=== PATIENT | female | born 1960 | race Caucasian/White ===

== ENCOUNTER 2017-06-30 09:39 | Emergency (ER) | payer MEDICAID ==
[2017-06-30] MEDS ORDERED: Ketorolac 60 MG/2 ML SDV IM ONE (11:11)
[2017-06-30] MEDS ORDERED: Ketorolac 60 MG/2 ML SDV ONE (11:15)
--- NOTE | 2017-06-30 15:26 | CR ---
DATE OF SERVICE: 06/30/17 CLINICAL DATA: pain x 1 day. No injury. LEFT SHOULDER: No priors. There is diffuse osteopenia. There are osteoarthritic changes involving the AC and glenohumeral joints. No acute fracture or dislocation. No lytic or blastic bone lesions. There are surgical changes involving the cervical spine. [id number] [facility]
--- NOTE | 2017-07-01 00:12 | ER ---
DATE OF SERVICE: 06/30/2017 HISTORY OF PRESENT ILLNESS: A 57-year-old lady here with complaints of left shoulder pain that started last evening. She states that she was in a store shopping yesterday afternoon when she bumped into a clothes rack. She states it was not hard. It was just a small bump, and it did not seem to bother her at first, but over the course of the next few hours the pain became worse. This morning, the pain has been severe. She is pointing to the anterior and lateral aspect of the left shoulder. She states it hurts when she tries to move it. There was a little bit of numbness at one point radiating into the upper arm, but she does not have that at this time. She denies any other injuries. She denies any previous history of a similar nature. OBJECTIVE: GENERAL APPEARANCE: The patient is awake and alert, in no obvious distress. VITAL SIGNS: Reviewed as listed. They are normal. Examining the left shoulder reveals tenderness over the anterior aspect of the glenohumeral joint radiating around to the deltoid muscle area. There is guarding with even light touch. The patient has pain with any kind of motion of the left shoulder. Hand grasp is present and equal. The patient has good sensation, color and motion of the hand and wrist area. LAB AND X-RAY: X-ray of the left shoulder was obtained. The radiologist report does show some degenerative joint disease with spurring along the glenoid rim as well as the left AC joint area. No acute fracture or dislocation. DIAGNOSES: Left shoulder pain due to arthritis combined with a minor injury. TREATMENT PLAN: The patient will be given a sling. She is to wear this for the next several days. She does have a fentanyl patch. I will give her a few Vicodin tablets to take just as needed, and she can apply ice packs to the area of pain frequently for the next couple of days. Recheck is pannmarie THOMPSON/SUZETTE /[id number] JENNY
== END 2017-06-30 11:50 | disposition home or self-care (01) ==
LOC: LB.ED 09:39
DX: M12.512 Traumatic arthropathy, left shoulder (principal); W22.8XXA Striking against or struck by other objects, initial encounter
CPT/HCPCS: 73030-LT; 96372; 99283-25

== ENCOUNTER 2019-02-26 20:22 | Emergency (ER) | payer MEDICAID ==
[2019-02-26] MEDS ORDERED: Cyclobenzaprine 10 MG Tab ONE (20:50)
[2019-02-26 21:00] VITALS: BP 112/57; PULSE 84
--- NOTE | 2019-02-27 02:37 | ER ---
HISTORY OF PRESENT ILLNESS: A 58-year-old lady here with complaints of pain involving the right shoulder. She is pointing to the superior and just proximal posterior aspect of the shoulder. She states it started after she was pulling on her Fridge on Thursday. She felt a little twinge in this area, but did not think anything of it and the next day she was quite painful. She has been using some Tylenol and ibuprofen. She also has a muscle relaxer actually 2 of them at home, but she says they are outdated. She did not try these. The patient also uses a fentanyl patch for other chronic pain. She felt that it improved and was getting better, then she did more activities and it is now painful once again. She did not have any falls or other types of injuries. OBJECTIVE: GENERAL APPEARANCE: The patient is awake and alert, no obvious distress. VITAL SIGNS: Reviewed and they are normal. EXTREMITIES: Examining the right shoulder reveals tightness and tenderness of the trapezius muscle, the full length of the muscle. Light touch is tender and it is slightly swollen compared to the left side. There is no bruising. The skin is intact. The patient has no tenderness with palpation of the shoulder joint, rotator cuff muscles, or deltoid muscle. LUNGS: Clear. SKIN: Warm and dry. DIAGNOSIS: Muscle strain of the right trapezius. TREATMENT PLAN: We will give the patient some Flexeril tablets. She can use them mainly at bedtime, but during the day as needed. They will make her drowsy. She is to continue alternating Tylenol with ibuprofen and she can apply heat alternating with ice and be switching over to just heat within the next day or so. Activity should be light duty. If she is having ongoing pain issues, she could wear sling. Followup should be in about a week if her symptoms are not resolving or as needed. CRS/MODL /[id number]
== END 2019-02-26 21:10 | disposition home or self-care (01) ==
LOC: LB.ED 20:22
DX: S46.911A Strain of unspecified muscle, fascia and tendon at shoulder and upper arm level, right arm, initial encounter (principal); X50.9XXA Other and unspecified overexertion or strenuous movements or postures, initial encounter
CPT/HCPCS: 99283; A9270-GY

== ENCOUNTER 2019-11-08 13:07 | Emergency (ER) | payer BC, MEDICAID ==
[2019-11-08] MEDS ORDERED: diphenhydrAMINE 50 MG/ML SDV IVPUSH ONE (13:33)
[2019-11-08] MEDS ORDERED: Famotidine 20 MG/2 ML SDV IVPUSH ONE (13:53)
[2019-11-08] MEDS ORDERED: methylPREDNISolone Sodium Succinate 125 MG/2 ML SDV IVPUSH ONE (13:53)
--- NOTE | 2019-11-08 14:27 | EDM.PDOC ---
ED HPI GENERAL MEDICAL PROBLEM - General Chief Complaint: Allergic Reaction Stated Complaint: BEE STING Time Seen by Provider: 11/08/19 13:45 Source of Information: Reports: Patient History Limitations: Reports: No Limitations - History of Present Illness INITIAL COMMENTS - FREE TEXT/NARRATIVE: LUE bee sting. PMH anaphylaxis. Epi pen was administered shortly after event. Onset: Today Severity: Mild Associated Symptoms: Reports: Rash Treatments BUFFING TURNER AND COUNTER: Reports: Other (see below) (EPI PEN) - Related Data Allergies Allergy/AdvReac Type Severity Reaction Status Date / Time bee venom protein (honey bee) Allergy Anaphylactic Verified 11/08/19 13:36 Shock Home Meds: Home Meds DULoxetine [Cymbalta] 60 mg PO DAILY 02/26/19 [History] FLUoxetine [PROzac] 40 mg PO DAILY 02/26/19 [History] Levothyroxine Sodium [Synthroid] 112 mcg PO ACBREAKFAST 02/26/19 [History] Omeprazole Magnesium 20 mg PO DAILY 02/26/19 [History] Oxybutynin 15 mg PO DAILY 02/26/19 [History] Spironolactone [Aldactone] 100 mg PO DAILY 02/26/19 [History] fentaNYL [Duragesic] 75 patch TRDERM ASDIRECTED 02/26/19 [History] lisinopriL [Lisinopril] 5 mg PO DAILY 02/26/19 [History] EPINEPHrine [Adrenaclick] 0.3 mg IM ASDIRECTED PRN #2 ml 11/08/19 [Rx] Past Medical History HEENT History: Reports: Impaired Vision Cardiovascular History: Reports: Hypertension Gastrointestinal History: Reports: GERD Genitourinary History: Reports: Retention, Urinary RN OTOLARYNGOLOGY History: Reports: Musculoskeletal History: Reports: Back Pain, Chronic, Neck Pain, Chronic Neurological History: Reports: Migraines Psychiatric History: Reports: Anxiety, Depression Endocrine/Metabolic History: Reports: Hypothyroidism - Past Surgical History Neurological Surgical History: Reports: C-Spine, Discectomy, Spinal Fusion Social & Family History - Family History Family Medical History: Noncontributory - Tobacco Use Smoking Status *Q: Unknown Ever Smoked Second Hand Smoke Exposure: No - Caffeine Use Caffeine Use: Reports: Coffee, Soda - Recreational Drug Use Recreational Drug Use: No ED ROS ALLERGIC REACTION - Review of Systems Review Of Systems: See Below Constitutional: Reports: No Symptoms HEENT: Reports: No Symptoms Respiratory: Reports: No Symptoms Cardiovascular: Reports: No Symptoms Endocrine: Reports: No Symptoms GI/Abdominal: Reports: No Symptoms : Reports: No Symptoms Musculoskeletal: Reports: No Symptoms Skin: Reports: Pruritis, Rash, Urticaria Neurological: Reports: No Symptoms Psychiatric: Reports: No Symptoms Hematologic/Lymphatic: Reports: No Symptoms Immunologic: Reports: Anaphylaxis, Environmental Allergy ED EXAM GENERAL NO PERIP PULSE - Physical Exam Exam: See Below Text/Narrative:: On exam, no facial, tongue, lip, or neck swelling. Diffuse hives anterior and posterior trunk, bilateral UE, and groin area. Patient denies SOB, CP, N/V/D. Was administered her EPI pen BUFFING TURNER AND COUNTER. We will observe patient in ED for 2 hours and DC. EPI pen RX called to Noelle Falcon pharmacist. Patient will be instructed to take 1 zyrtec daily at bedtime x 4 days, and 50mg benadryl every 6 hours for 3 days for itching and hives. Exam Limited By: No Limitations General Appearance: Alert, No Apparent Distress Ears: Normal External Exam Nose: Normal Inspection Throat/Mouth: Normal Inspection, Normal Lips, Normal Oropharynx, Normal Voice, No Airway Compromise Head: Atraumatic Neck: Normal Inspection, Non-Tender, Full Range of Motion Respiratory/Chest: No Respiratory Distress, Lungs Clear, Normal Breath Sounds, No Accessory Muscle Use, Chest Non-Tender. No: Respiratory Distress, Wheezing, Stridor Cardiovascular: Normal Peripheral Pulses, Regular Rate, Rhythm, No Murmur, Tachycardia GI/Abdominal: Normal Bowel Sounds, Soft, Non-Tender Back Exam: Normal Inspection, Full Range of Motion Extremities: Normal Inspection, Normal Range of Motion, Non-Tender, Normal Capillary Refill Neurological: Alert, Oriented, Normal Cognition, No Motor/Sensory Deficits Psychiatric: Normal Affect, Normal Mood Skin Exam: Warm, Dry, Intact, Erythema, Rash Lymphatic: No Adenopathy Course - Vital Signs Last Recorded V/S: Last Vital Signs Temp 97.8 F 11/08/19 13:30 Pulse 84 11/08/19 13:48 Resp 25 H 11/08/19 13:48 BP 137/76 11/08/19 13:48 Pulse Ox 99 11/08/19 13:48 - Orders/Labs/Meds Meds: Medications Discontinued Medications Generic Name Dose Route Start Last Admin Trade Name Freq PRN Reason Stop Dose Admin Diphenhydramine HCl 50 mg 11/08/19 13:33 11/08/19 13:40 Benadryl IVPUSH 11/08/19 13:34 50 mg ONETIME ONE Administration Famotidine 20 mg 11/08/19 13:53 11/08/19 13:55 Pepcid IVPUSH 11/08/19 13:54 20 mg ONETIME ONE Administration Methylprednisolone Sodium Succinate 125 mg 11/08/19 13:53 11/08/19 13:55 Solu-Medrol IVPUSH 11/08/19 13:54 125 mg ONETIME ONE Administration - Re-Assessments/Exams Free Text/Narrative Re-Assessment/Exam: 11/08/19 15:16 Patient reassessed, no c/o at this time. Airway remains patent. Hives have resolved completely at this time. lung sounds clear and equal bilaterally. Departure - Departure Time of Disposition: 15:25 Disposition: Home, Self-Care 01 Condition: Good Clinical Impression: Anaphylactic reaction Qualifiers: Encounter type: initial encounter Qualified Code(s): T78.2XXA - Anaphylactic shock, unspecified, initial encounter - Discharge Information *PRESCRIPTION DRUG MONITORING PROGRAM REVIEWED*: Not Applicable *COPY OF PRESCRIPTION DRUG MONITORING REPORT IN PATIENT DIAMOND: Not Applicable Prescriptions: EPINEPHrine [Adrenaclick] 0.3 mg IM ASDIRECTED PRN #2 ml PRN Reason: Allergies Instructions: Anaphylactic Reaction, Adult, Allergies, Adult Referrals: PCP,None [Primary Care Provider] - Forms: ED Department Discharge Additional Instructions: EPI pen RX called to Noelle Falcon pharmacist. Patient will be instructed to take 1 zyrtec daily at bedtime x 4 days, and 50mg benadryl every 6 hours for 3 days for itching and hives. Return to ED for ANY increased or new concerning symptoms. Do not drive while taking the benadryl as this will cause drowsiness. Keep your EPI pen with you. Sepsis Event Note (ED) - Evaluation Sepsis Screening Result: No Definite Risk - Focused Exam Vital Signs: Vital Signs Temp Pulse Resp BP Pulse Ox 11/08/19 13:48 84 25 H 137/76 99 11/08/19 13:30 97.8 F 93 14 151/76 H 99 - Assessment/Plan Plan: Discussed with patient when to return and how to take OTC antihistamines. Spoke with Noelle the pharmacist at [facility] about dosing for 72 hours. Patient verbalized understanding and all questions were answered prior to DC. Patient will tile picker new EPI pens before returning home.
== END 2019-11-08 15:27 | disposition home or self-care (01) ==
LOC: LB.ED 13:07
DX: T63.441A Toxic effect of venom of bees, accidental (unintentional), initial encounter (principal); T78.2XXA Anaphylactic shock, unspecified, initial encounter; I10 Essential (primary) hypertension; K21.9 Gastro-esophageal reflux disease without esophagitis; F41.9 Anxiety disorder, unspecified; F32.9 Major depressive disorder, single episode, unspecified; E03.9 Hypothyroidism, unspecified; Z91.030 Bee allergy status; Z79.899 Other long term (current) drug therapy
CPT/HCPCS: 96374; 96375; 99283; J1200; J2930; J3490; 99282

== ENCOUNTER 2020-04-06 11:07 | Day surgery (SDC) | payer BC, MEDICAID ==
[~2020-04-06 11:07] MED LIST: Metoclopramide 10 MG/2 ML SDV IV PRN; Sodium Chloride 0.9% 1,000 ML IV SCH
[2020-04-06] MEDS ORDERED: Propofol 200 MG/20 ML SDV ONE (15:10)
--- NOTE | 2020-04-06 16:04 | OR ---
DATE OF OPERATION: 04/06/2020 SURGEON: Kayden Fritz MD PREOPERATIVE DIAGNOSIS: Screening colonoscopy. POSTOPERATIVE DIAGNOSIS: Screening colonoscopy. PROCEDURE: Colonoscopy. ANESTHESIA: MAC. ESTIMATED BLOOD LOSS: None. COMPLICATIONS: None. INDICATION FOR THE PROCEDURE: The patient is a 59-year-old female, here today for screening colonoscopy. Does have history of diverticulosis. Does have history of spastic colon. Last colonoscopy was 9 or 10 years ago. No polyps per the patient. She otherwise denies any change in bowel habits since that time. DESCRIPTION OF PROCEDURE: Informed consent was obtained from the patient. The patient was brought to the operating room, placed on table in left lateral decubitus position. Monitored anesthesia care was administered. Digital rectal exam performed, it was normal. Colonoscope was then advanced through the anus directed towards the sigmoid colon. Sigmoid was reached, was tortuous, unable to negotiate past the sigmoid. We were using a peds scope. She was placed in a supine position. She was turned back to the left lateral decubitus position. Unable to negotiate past the sigmoid. Procedure was then terminated. FINDINGS: Incomplete colonoscopy. RECOMMENDATIONS: We will plan for CT colonography in the future at the patient's convenience. CORAL/SUZETTE /[id number]
== END 2020-04-06 16:30 | disposition home or self-care (01) ==
LOC: LB.SDS 11:07
PROVIDERS: ATTEND Surgery
DX: Z12.11 Encounter for screening for malignant neoplasm of colon (principal); I10 Essential (primary) hypertension; E78.5 Hyperlipidemia, unspecified; E03.9 Hypothyroidism, unspecified; Z88.8 Allergy status to other drugs, medicaments and biological substances; Z91.030 Bee allergy status; Z91.013 Allergy to seafood; Z79.899 Other long term (current) drug therapy; Z79.890 Hormone replacement therapy; Z90.49 Acquired absence of other specified parts of digestive tract; Z98.890 Other specified postprocedural states
CPT/HCPCS: J2704; J7030

== ENCOUNTER 2021-09-12 19:57 | Emergency (ER) | payer BC ==
[2021-09-12 20:33] VITALS: BP 142/71; PULSE 87
[2021-09-12] MEDS ORDERED: Ondansetron 4 MG Tab.DIS PO ONE (20:52)
[2021-09-12] MEDS: Ondansetron 4 MG/2 ML SDV IVPUSH ONE (21:15)
[2021-09-12] MEDS: HYDROmorphone 2 MG/ML SDV IM ONE (21:16)
[2021-09-12] MEDS: HYDROmorphone 2 MG/ML Syringe ONE (21:16)
[2021-09-12] MEDS: Sodium Chloride 0.9% 1,000 ML IV ONE (22:07)
[2021-09-13] MEDS: Ondansetron 4 MG/2 ML SDV ONE (01:55)
== END 2021-09-12 23:11 | disposition home or self-care (01) ==
LOC: LB.ED 19:57
DX: R10.84 Generalized abdominal pain (principal); I10 Essential (primary) hypertension; K21.9 Gastro-esophageal reflux disease without esophagitis; E03.9 Hypothyroidism, unspecified; Z91.030 Bee allergy status; Z79.899 Other long term (current) drug therapy
CPT/HCPCS: 36415; 74176; 80053; 83605; 83690; 85025; 96361; 96372; 96374; 99282; 99284-25; J1170; J2405; J7030

== ENCOUNTER 2022-02-04 19:48 | Emergency (ER) | payer BC ==
[2022-02-04] MEDS: HYDROmorphone 2 MG/ML Syringe ONE (20:52)
[2022-02-04] MEDS: HYDROmorphone 2 MG/ML SDV IM ONE (20:53)
[2022-02-04 21:27] LABS: UROTHELIAL CELLS,URINE FEW /HPF
[2022-02-04 21:39] LABS: ESTIMATED GFR 40 mL/min (>60)
[2022-02-04] MEDS: Sodium Chloride 0.9% 1,000 ML IV ONE (22:00)
[2022-02-04] MEDS: Ketorolac 30 MG/ML SDV ONE (22:00)
[2022-02-04] MEDS: Ketorolac 30 MG/ML SDV IVPUSH ONE (22:04)
[2022-02-04] MEDS: GI Cocktail Oral Solution 30 ML PO ONE (22:11)
== END 2022-02-04 23:05 | disposition home or self-care (01) ==
LOC: LB.ED 19:48
DX: E87.1 Hypo-osmolality and hyponatremia (principal); E87.8 Other disorders of electrolyte and fluid balance, not elsewhere classified; E86.0 Dehydration; I10 Essential (primary) hypertension; Z91.030 Bee allergy status; Z79.899 Other long term (current) drug therapy
CPT/HCPCS: 36415; 74176; 80053; 81001; 83690; 85025; 96361; 96372; 96374; 99284-25; A9270-GY; J1170; J1885; J7030

== ENCOUNTER 2022-08-15 14:54 | Emergency (ER) | payer BC ==
[2022-08-15] MEDS ORDERED: Sodium Chloride 0.9% 10 ML Syringe FLUSH PRN (15:44)
[2022-08-15 16:00] LABS: HEMATOCRIT 25.9 % (37.0-47.0); HEMOGLOBIN 8.8 g/dL (11.5-16.5); MEAN CORPUSCULAR HEMOGLOBIN 33.3 pg (27.0-32.0); MEAN PLATELET VOLUME 9.2 fL (6.0-10.0); RED BLOOD CELL COUNT 2.64 M/uL (3.80-5.80); RED CELL DISTRIBUTION WIDTH 12.5 % (11.0-16.0); WHITE BLOOD CELL COUNT,WBC 11.2 K/uL (4.0-11.0)
[2022-08-15 16:34] LABS: A/G RATIO 0.8 (0.8-2.0); ALBUMIN 2.9 g/dL (3.4-5.0); BILIRUBIN TOTAL 0.3 mg/dL (0.0-1.0); BUN/CREATININE RATIO 18.3 (6-25); CALCIUM 8.6 mg/dL (8.5-10.1); CARBON DIOXIDE,CO2 20.8 mmol/L (21.0-32.0); CREATININE 2.19 mg/dL (0.55-1.02); EST CRCL DRUG DOSING (CG) 21.07 mL/min; MAGNESIUM 1.8 mg/dL (1.8-2.4); PHOSPHORUS 4.2 mg/dL (2.5-4.9); POTASSIUM,K 4.5 mmol/L (3.5-5.1); PROTEIN TOTAL,TP 6.6 g/dL (6.4-8.2)
[2022-08-15 16:35] LABS: ANION GAP 10.7 mmol/L (5.0-15.0)
[2022-08-15 16:37] LABS: TROPONIN I HIGH SENSITIVITY 88.5 pg/ml (<=60.4)
[2022-08-15] MEDS ORDERED: Heparin Sodium 5,000 Units/ML Vial IVPUSH ONE (17:05)
[2022-08-15] MEDS ORDERED: Heparin Sodium 1,000 Units/ML 10 ML MDV ONE (17:10)
[2022-08-15] MEDS ORDERED: Heparin Sodium/D5W 500 ML ONE (17:10)
[2022-08-15] MEDS ORDERED: Heparin Sodium/D5W 25,000 UNITS/500 ML BAG IV SCH (17:15)
[2022-08-15] MEDS ORDERED: LORazepam 2 MG/ML SDV IVPUSH ONE (19:47)
[2022-08-15] MEDS ORDERED: LORazepam 2 MG/ML SDV ONE (19:51)
[2022-08-15] MEDS ORDERED: Sodium Chloride 0.9% 1,000 ML IV SCH (21:00)
== END 2022-08-16 05:25 ==
LOC: LB.ED 14:54
DX: R06.09 Other forms of dyspnea (principal); R77.8 Other specified abnormalities of plasma proteins; R79.1 Abnormal coagulation profile; R74.8 Abnormal levels of other serum enzymes; I10 Essential (primary) hypertension; I25.2 Old myocardial infarction; K21.9 Gastro-esophageal reflux disease without esophagitis; E03.9 Hypothyroidism, unspecified; Z87.891 Personal history of nicotine dependence; Z79.899 Other long term (current) drug therapy; Z91.030 Bee allergy status
CPT/HCPCS: 36415; 71045; 80053; 83735; 83880; 84100; 84484; 85027; 85379; 85730; 93005; 96365; 96366; 96375; 99285; J1644; J2060; J7030